=== PATIENT | female | born 1990 | race Caucasian/White ===

== ENCOUNTER 2019-10-18 22:11 | Emergency (ER) | payer OTHER ==
[2019-10-18 22:23] VITALS: BP 141/90
--- NOTE | 2019-10-19 00:46 | ED Physician Documentation ---
History of Present Illness - Stated complaint Stated Complaint: SORE BREASTS - Chief complaint Chief Complaint: General - History obtained from History obtained from: Patient - History of Present Illness Timing: How many days ago (1-2) Pain level now: 3 - Additonal information Additional information: currently , c/o left breast pain, tenderness immediately below (adjacent to) left nipple since 1-2 days ago. she feels this is similar to previous mastitis, and she wanted to be evaluated early in the course to prevent worsening. denies fever although having generalized myalgias and aches Review of Systems Constitutional: reports: Myalgias. 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 - Present Medications Home Medications: Ambulatory Orders Medication Instructions Recorded Confirmed Dicloxacillin Sodium 500 mg PO QID #27 capsule 10/19/19 - Allergies Allergies/Adverse Reactions: Allergies Allergy/AdvReac Type Severity Reaction Status Date / Time No Known Drug Allergies Allergy Verified 10/18/19 22:21 - Social History Does the pt smoke?: No Smoking Status: Never smoker Does the pt drink ETOH?: No - Immunizations Immunizations are current?: Yes PD ED PE NORMAL - Vitals Vital signs reviewed: Yes - General General: Alert and oriented X 3, No acute distress, Well developed/nourished PD ED PE EXPANDED - Visual Whole body visual: 1 - swelling, tenderness Results - Vitals Vitals: Oxygen O2 Source Room air PD MEDICAL DECISION MAKING - ED course Complexity details: considered differential, d/w patient Departure - Departure Disposition: 01 Home, Self Care Clinical Impression: Mastitis Condition: Good Instructions: ED Breast Infec Follow-Up: RAFAL SHAH [Primary Care Provider] - Prescriptions: Dicloxacillin Sodium 500 mg PO QID #27 capsule Discharge Date/Time: 10/19/19 01:01
[2019-10-19] MEDS ORDERED: DICLOXACILLIN 250 MG CAPSULE PO STA (00:50)
== END 2019-10-19 01:01 | disposition home or self-care (01) ==
LOC: ED 22:11
DX: N61.0 Mastitis without abscess (principal)
CPT/HCPCS: 99281; 99282; A9270

== ENCOUNTER 2021-08-31 11:19 | Emergency (ER) | payer OTHER ==
--- NOTE | 2021-08-31 11:56 | ED Physician Documentation ---
History of Present Illness - Stated complaint Stated Complaint: CHEST PX/CONGESTION - Chief complaint Chief Complaint: Resp - Additonal information Additional information: 31-year-old female presents emergency department for evaluation of 2 weeks cough and congestion. States that her kids have been sick and she thinks she got something from them. Had not thought much of it however over the last 24 hours she is began to have increased chest tightness and chest pain. She states that yesterday she was having hot chills. No fevers nausea or vomiting. Patient is unsure if . Approximately 18 days late for her cycle. Non-smoker. Denies any history of asthma or reactive airway disease. Not yet vaccinated for COVID-19. She has taken 3 COVID test at home that have all resulted negative. Review of Systems Constitutional: reports: Chills, Myalgias. 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 - Present Medications Home Medications: Ambulatory Orders Medication Instructions Recorded Confirmed Amox/Clav 875/125 [Augmentin] 1 each PO Q12H #14 tablet 08/31/21 Azithromycin [Zithromax] 0 mg PO DAILY #6 tablet 08/31/21 - Allergies Allergies/Adverse Reactions: Allergies Allergy/AdvReac Type Severity Reaction Status Date / Time No Known Drug Allergies Allergy Verified 08/31/21 11:27 - Social History Does the pt smoke?: No Smoking Status: Never smoker Does the pt drink ETOH?: No - Immunizations Immunizations are current?: Yes PD ED PE NORMAL - General General: Alert and oriented X 3, No acute distress, Well developed/nourished - HEENT HEENT: Atraumatic, Ears normal, Moist mucous membranes, Pharynx benign - Neck Neck: Supple, no meningeal sign, No adenopathy - Cardiac Cardiac: RRR, No murmur - Respiratory Respiratory: No respiratory distress, Clear bilaterally - Abdomen Abdomen: Normal bowel sounds, Soft - Back Back: No CVA TTP, No spinal TTP - Derm Derm: Warm and dry - Extremities Extremities: No deformity - Neuro Neuro: Alert and oriented X 3 Eye Opening: Spontaneous Motor: Obeys Commands Verbal: Oriented GCS Score: 15 - Psych Psych: Normal mood Results - Vitals Vitals: Vital Signs - 24 hr 08/31/21 11:28 Temperature 36.7 C Heart Rate 87 Respiratory 20 Rate Blood Pressure 137/89 H O2 Saturation 97 Oxygen O2 Source Room air - Labs Labs: Laboratory Tests 08/31/21 11:50 Urine HCG, Qual NEGATIVE - Rads (name of study) cxr Radiology: EMP read indepedently (Hazy opacity left lower lung field likely early pneumonia or atelectasis) PD MEDICAL DECISION MAKING - ED course Complexity details: reviewed results, re-evaluated patient, considered differential, d/w patient ED course: 31-year-old female presents emergency department for evaluation of a cough that is persisted now for 2 weeks. Patient began developing subjective fevers yesterday she feels a tightness in her chest as well as has mild chest pain though no pleuritic component. No hypoxia. Cardiopulmonary auscultation was unremarkable. My review of the chest x-ray suggests a subtle opacity in the left lower lobe of the lung which I believe is likely an early pneumonia. Given this finding prescription for Augmentin and azithromycin will be sent to the pharmacy. Emergent return precautions were discussed for failure symptoms to improve. Departure - Departure Disposition: 01 Home, Self Care Clinical Impression: Pneumonia Qualifiers: Pneumonia type: due to unspecified organism Laterality: left Lung location: lower lobe of lung Qualified Code(s): J18.9 - Pneumonia, unspecified organism Condition: Stable Record reviewed to determine appropriate education?: Yes Instructions: ED Pneumonia Adult Prescriptions: Amox/Clav 875/125 [Augmentin] 1 each PO Q12H #14 tablet Azithromycin [Zithromax] 0 mg PO DAILY #6 tablet Comments: As we discussed at the bedside I suspect that you are developing a mild or early pneumonia in the left lower lobe of your lung. I have sent a prescription for some antibiotics to the [facility] in [place]. Please fill these this afternoon and begin taking as directed. With the antibiotics I would expect that over the next 48 to 72 hours you are beginning to have reduced cough, improved pain and reduced fevers. If at any point you feel that your symptoms are worsening, you have sudden severe chest pain, shortness of air or fainting episodes and you should return immediately to the ER for a second evaluation.
[2021-08-31 12:01] LABS: HCG UR QUAL NEGATIVE
[2021-08-31 13:02] VITALS: BP 117/78
--- NOTE | 2021-08-31 13:06 | XRAY Report ---
PROCEDURE: Chest 2 View X-Ray INDICATIONS: cough, shortness of air TECHNIQUE: 2 view(s) of the chest. COMPARISON: None. FINDINGS: Surgical changes and devices: None. Lungs and pleura: No pleural effusions or pneumothorax. Within the left mid to lower, there is minim al patchy opacity seen. Mediastinum: Mediastinal contours are normal. Heart size is normal. Bones and chest wall: No suspicious bony abnormalities. Soft tissues appear unremarkable. IMPRESSION: Minimal patchy opacity can be seen within the left mid to lower lung. A mild amount of i nfectious infiltrate is suspected, although differential diagnosis would also include atelectasis. Reviewed by: Marcelo Estrella MD on 08/31/2021 12:05 PM SANDIE Approved by: Marcelo Estrella MD on 08/31/2021 12:05 PM SANDIE Station ID: [id number]
== END 2021-08-31 13:08 | disposition home or self-care (01) ==
LOC: ED 11:19
DX: J18.9 Pneumonia, unspecified organism (principal)
CPT/HCPCS: 81025; 99283; 99284